=== PATIENT | female | born 1985 | race African-American/Black ===

== ENCOUNTER 2021-12-03 17:25 | Inpatient (IN) | payer MEDICAID, OTHER ==
[~2021-12-03] VITALS: Ht 157.5 cm; Wt 134.5 kg
[2021-12-03] MEDS ORDERED: ALBUTEROL SULF 2.5 MG/0.5ML(0.5%) NEB SOLN HHN ONE (19:15)
[2021-12-03] MEDS ORDERED: IPRATROPIUM BROM 0.5 MG/2.5ML INH SOL HHN ONE (19:15)
[2021-12-03] MEDS ORDERED: FAMOTIDINE 20 MG TAB PO ONE (21:45)
[2021-12-04] MEDS ORDERED: IOHEXOL 350 MG/ML 100ML IJ ONE (00:08)
[2021-12-04 00:26] LABS: Basophils # (auto) 0 10 ^3/uL (0-0.2); Eosinophils # (auto) 0 10 ^3/uL (0-0.8); Hemoglobin 13.7 g/dL (12.2-16.2)
[2021-12-04 00:28] LABS: Basophils % (auto) 0.2 % (0.0-2.0); Hematocrit 41.2 % (36.0-46.0); Lymphocytes # (auto) 1.3 10 ^3/uL (0.4-5.4); Lymphocytes % (auto) 9.1 % (10.0-50.0); Mean Corpuscular Hemoglobin 25.7 pg (28.0-32.0); Mean Corpuscular Hgb Conc. 33.2 g/dL (32.0-36.0); Mean Corpuscular Volume 77.3 fL (80.0-100.0); Monocytes # (auto) 0.7 10 ^3/uL (0-1.3); Neutrophils # (auto) 11.8 10 ^3/uL (1.6-8.6); Neutrophils % (auto) 85.7 % (37.0-80.0); Red Blood Cells 5.33 10^6/uL (4.0-5.20); Red Cell Distribution Width 16.2 % (11.8-14.3); White Blood Cell 13.8 10^3/uL (4.4-10.8)
[2021-12-04 00:37] LABS: BUN/Creatinine Ratio 8.6; Calcium 8.5 mg/dL (8.5-10.1); Potassium 3.7 mmol/L (3.5-5.1)
[2021-12-04] MEDS ORDERED: AZITHROMYCIN 500MG/ 250ML 250 ML IV ONE (04:30)
[2021-12-04] MEDS ORDERED: cefTRIAXone 1GM/50ML D5W 50 ML IV ONE (04:30)
[2021-12-04 10:27] LABS: Basophils # (auto) 0 10 ^3/uL (0-0.2); Eosinophils # (auto) 0 10 ^3/uL (0-0.8); Hemoglobin 12.2 g/dL (12.2-16.2); Lymphocytes # (auto) 0.7 10 ^3/uL (0.4-5.4); Mean Corpuscular Hemoglobin 24.7 pg (28.0-32.0); Monocytes # (auto) 0.6 10 ^3/uL (0-1.3); Nucleated Red Blood Cells % 0.1 %; Red Cell Distribution Width 16.3 % (11.8-14.3)
[2021-12-04 10:29] LABS: Hematocrit 37.9 % (36.0-46.0); Lymphocytes % (auto) 5.7 % (10.0-50.0); Mean Corpuscular Hgb Conc. 32.2 g/dL (32.0-36.0); Mean Corpuscular Volume 76.8 fL (80.0-100.0); Monocytes % (auto) 5.1 % (0.0-12.0); Neutrophils % (auto) 89.2 % (37.0-80.0); Red Blood Cells 4.94 10^6/uL (4.0-5.20); White Blood Cell 12.3 10^3/uL (4.4-10.8)
[2021-12-04 10:53] LABS: BUN/Creatinine Ratio 14.7; Calcium 8.6 mg/dL (8.5-10.1)
[2021-12-04] MEDS ORDERED: methylPREDNISolone SOD SUCC 125 MG/2 ML VL IV ONE (11:15)
[2021-12-04] MEDS ORDERED: IPRATROPIUM BROM 0.5 MG/2.5ML INH SOL NEB PRN (11:15)
[2021-12-04] MEDS ORDERED: SODIUM CHLORIDE 0.9% 500 ML IV ONE (11:15)
[2021-12-04] MEDS ORDERED: MORPHINE SULFATE INJ 2 MG/ml SYRG IV PRN (11:15)
[2021-12-04] MEDS ORDERED: ALBUTEROL SULF 2.5 MG/0.5ML(0.5%) NEB SOLN NEB PRN (11:15)
[2021-12-04] MEDS: SODIUM CHLORIDE 0.9% 1,000 ML IV SCH (11:15)
[2021-12-04] MEDS: IPRATROPIUM BROM 0.5 MG/2.5ML INH SOL NEB SCH ×2 (12:02→18:41)
[2021-12-04] MEDS: ALBUTEROL SULF 2.5 MG/0.5ML(0.5%) NEB SOLN NEB SCH ×2 (12:02→18:41)
[2021-12-04 13:37] LABS: Urine Bacteria NONE SEEN /hpf (None Seen); Urine Blood 3+ /uL (Negative); Urine Specific Gravity 1.037 (1.001-1.035); Urine WBC 24 /hpf (0 - 5)
[2021-12-04 13:45] VITALS: BP 124/86
[2021-12-04 13:50] LABS: Amphetamine Screen, Urine NEGATIVE (NEGATIVE); Barbiturate Scree,Urine NEGATIVE (NEGATIVE); Benzodiazephine Screen, Urine NEGATIVE (NEGATIVE); Cannabinoid Screen, Urine POSITIVE (NEGATIVE); Cocaine Screen, Urine NEGATIVE (NEGATIVE); Opiate Scree,Urine NEGATIVE (NEGATIVE); Phencyclidine Screen, Urine NEGATIVE (NEGATIVE)
[2021-12-04] MEDS ORDERED: ALBU0.084 NEB (19:04)
[2021-12-04] MEDS ORDERED: HYDROcodone-ACET 5/325MG TAB PO ONE (22:00)
[2021-12-05] MEDS: SODIUM CHLORIDE 0.9% 1,000 ML IV SCH ×3 (03:04→17:15)
[2021-12-05 05:00] VITALS: BP 101/71
[2021-12-05] MEDS: ALBUTEROL SULF 2.5 MG/0.5ML(0.5%) NEB SOLN NEB SCH ×3 (05:50→19:27)
[2021-12-05] MEDS: IPRATROPIUM BROM 0.5 MG/2.5ML INH SOL NEB SCH ×3 (05:50→19:27)
[2021-12-05] MEDS: methylPREDNISolone SOD SUCC 40 MG/ML VL IV SCH ×3 (06:25→21:42)
[2021-12-05 07:01] LABS: Eosinophils # (auto) 0 10 ^3/uL (0-0.8); Hemoglobin 11.7 g/dL (12.2-16.2); Monocytes # (auto) 0.8 10 ^3/uL (0-1.3); Nucleated Red Blood Cells % 0.1 %
[2021-12-05 07:03] LABS: Basophils # (auto) 0.1 10 ^3/uL (0-0.2); Basophils % (auto) 0.4 % (0.0-2.0); Hematocrit 35.3 % (36.0-46.0); Lymphocytes # (auto) 1.1 10 ^3/uL (0.4-5.4); Lymphocytes % (auto) 7.2 % (10.0-50.0); Mean Corpuscular Hemoglobin 25.3 pg (28.0-32.0); Mean Corpuscular Hgb Conc. 33.1 g/dL (32.0-36.0); Mean Corpuscular Volume 76.4 fL (80.0-100.0); Monocytes % (auto) 4.9 % (0.0-12.0); Neutrophils # (auto) 13.9 10 ^3/uL (1.6-8.6); Neutrophils % (auto) 87.5 % (37.0-80.0); Red Blood Cells 4.62 10^6/uL (4.0-5.20); Red Cell Distribution Width 16.3 % (11.8-14.3); White Blood Cell 15.9 10^3/uL (4.4-10.8)
[2021-12-05 07:06] LABS: Calcium 8.3 mg/dL (8.5-10.1); Potassium 4.1 mmol/L (3.5-5.1)
[2021-12-05 07:12] LABS: BUN/Creatinine Ratio 21.9
[2021-12-05] MEDS: cefTRIAXone 1GM/50ML D5W 50 ML IV SCH (09:21)
[2021-12-05] MEDS: ENOXAPARIN SOD 40 MG/0.4 ML SYRINGE SC SCH (10:28)
[2021-12-05] MEDS: AZITHROMYCIN 500MG/ 250ML 250 ML IV SCH (10:28)
[2021-12-05] MEDS: ACETAMINOPHEN 325 MG TAB PO PRN ×2 (13:05→21:03)
[2021-12-05 14:31] VITALS: BP 122/86
[2021-12-05 22:00] VITALS: BP 119/65
[2021-12-06 05:00] VITALS: BP 120/62
[2021-12-06] MEDS: methylPREDNISolone SOD SUCC 40 MG/ML VL IV SCH ×3 (05:50→22:12)
[2021-12-06] MEDS: SODIUM CHLORIDE 0.9% 1,000 ML IV SCH ×3 (05:50→23:15)
[2021-12-06] MEDS: IPRATROPIUM BROM 0.5 MG/2.5ML INH SOL NEB SCH ×3 (06:44→18:46)
[2021-12-06] MEDS: ALBUTEROL SULF 2.5 MG/0.5ML(0.5%) NEB SOLN NEB SCH ×3 (06:44→18:46)
[2021-12-06 09:00] VITALS: BP 115/66
[2021-12-06] MEDS: cefTRIAXone 1GM/50ML D5W 50 ML IV SCH (09:02)
[2021-12-06] MEDS: ENOXAPARIN SOD 40 MG/0.4 ML SYRINGE SC SCH (09:02)
[2021-12-06] MEDS: AZITHROMYCIN 500MG/ 250ML 250 ML IV SCH (09:04)
[2021-12-06 12:48] VITALS: BP 126/67
[2021-12-06 16:51] VITALS: BP 145/90
[2021-12-06] MEDS: ACETAMINOPHEN 325 MG TAB PO PRN (20:42)
[2021-12-06 22:00] VITALS: BP 108/68
[2021-12-07] MEDS: SODIUM CHLORIDE 0.9% 1,000 ML IV SCH (00:15)
[2021-12-07 04:46] VITALS: BP 143/82
[2021-12-07] MEDS: IPRATROPIUM BROM 0.5 MG/2.5ML INH SOL NEB SCH ×2 (07:11→11:26)
[2021-12-07] MEDS: ALBUTEROL SULF 2.5 MG/0.5ML(0.5%) NEB SOLN NEB SCH ×2 (07:11→11:26)
[2021-12-07 09:00] VITALS: BP 143/89
[2021-12-07] MEDS: AZITHROMYCIN 500MG/ 250ML 250 ML IV SCH (09:10)
[2021-12-07] MEDS: ENOXAPARIN SOD 40 MG/0.4 ML SYRINGE SC SCH (09:10)
[2021-12-07] MEDS: cefTRIAXone 1GM/50ML D5W 50 ML IV SCH (09:10)
[2021-12-07 10:55] VITALS: BP 143/89
[2021-12-07] MEDS ORDERED: AZIT250T8 PO (12:29)
[2021-12-07] MEDS ORDERED: PRED20TA2 PO (12:33)
[2021-12-07 13:00] VITALS: BP 119/62
[2021-12-07 16:31] VITALS: BP 152/97
[2021-12-08] MEDS ORDERED: predniSONE 20 MG TAB PO SCH (10:00)
== END 2021-12-07 17:30 | disposition home or self-care (01) | DRG 133 ==
LOC: EDBD 17:25 → ER 17:25 → TELE 12-04 11:07 → TELE-WESTW 12-05 09:39
PROVIDERS: ADMIT Registered Nurse; ATTEND Internal Medicine Nephrology
DX: J96.01 Acute respiratory failure with hypoxia (principal); N17.9 Acute kidney failure, unspecified; J18.9 Pneumonia, unspecified organism; J45.901 Unspecified asthma with (acute) exacerbation; Z68.43 Body mass index [BMI] 50.0-59.9, adult; N39.0 Urinary tract infection, site not specified; F12.10 Cannabis abuse, uncomplicated; Z20.822 Contact with and (suspected) exposure to COVID-19; E66.01 Morbid (severe) obesity due to excess calories; Z87.09 Personal history of other diseases of the respiratory system; Z86.16 Personal history of COVID-19
CPT/HCPCS: 36415; 71045; 71046; 71275; 80048; 80307; 81001; 83605; 83735; 84484; 85025; 85379; 87040; 87070; 87086; 87205; 93005; 93970; 94640; 94644; 96365; 96367; G0378; J0696

== ENCOUNTER 2024-09-16 11:33 | Inpatient (IN) | payer MEDICAID ==
[~2024-09-16] VITALS: Ht 160 cm; Wt 128.0 kg
[~2024-09-16 11:33] MED LIST: ALBU0.084 NEB; AZIT-185 PO; PRED20TA2 PO
--- NOTE | 2024-09-16 12:13 | ED.PDOC ---
History of Present Illness HPI Comments 39F presents to the Er w/ prior Hx of Pneumonia, COVID x2 and Asthma which all may be associated to the c/c of SOB. Pt reports on being "sick 2 weeks ago" and as it went away, the symptoms came back of lightheadedness, N/ and Cough on Saturday of 09/12/24. Social Hx of Occasional alcohol use, and marijuana use but denies tobacco use. Denies chills, fever, N/V/D, CP or no other associated symptom's, modifiers, recent injuries or sick contacts at this time. Chief Complaint: Shortness of Breath Time Seen by MD: 12:00 Primary Care Provider: MASOUD Reviewed Notes: Nurses Notes, Medications, Allergies Allergies: Coded Allergies: NO KNOWN ALLERGIES (Unverified , 02/29/16) Home Meds Active Scripts Prednisone (Prednisone) 20 Mg Tab, 2 TAB PO DAILY for 5 Days, #10 TAB Prov:GROVER PATEL MD 12/07/21 Azithromycin (ZITHROMAX TABLET) 250 Mg Tb, 250 MG PO DAILY for 4 Days, #4 TAB Prov:GROVER PATEL MD 12/07/21 Reported Medications Albuterol Sulfate (Albuterol Sulfate) 0.083 % Neb, 1 VIAL NEB Q4HPRN, #50 VIAL 12/04/21 Information Source: Patient Mode of Arrival: Ambulatory Severity: Moderate Timing: Days Duration: Since onset, Days Prehospital treatment: None Past Medical History PAST MEDICAL HISTORY: Asthma Past Medical History (Other): Pneumonia and COVIDx2 Surgical History: Denies all surgeries PHYSICS PROFESSOR History: No Pertinent PHYSICS PROFESSOR History Family History Family History: Reviewed,noncontributory to illness, Unknown Social History Smoker: Non-Smoker Alcohol: Denies ETOH Use Drugs: Denies Drug Use Lives In: Home Constitutional: denies: chills, diaphoresis, fatigue, fever, malaise, sweats, weakness, others EENTM: denies: blurred vision, double vision, ear bleeding, ear discharge, ear drainage, ear pain, ear ringing, eye pain, eye redness, hearing loss, mouth pain, mouth swelling, nasal discharge, nose bleeding, nose congestion, nose pain, photophobia, tearing, throat pain, throat swelling, voice changes, others Respiratory: reports: cough, shortness of breath; denies: hemoptysis, orthopnea, SOB at rest, SOB with excertion, stridor, wheezing, others Cardiovascular: denies: chest pain, dizzy spells, diaphoresis, Dyspnea on exertion, edema, irregular heart beat, left arm pain, lightheadedness, palpitations, PND, syncope, others Gastrointestinal: denies: abdomen distended, abdominal pain, blood streaked bowels, constipated, diarrhea, dysphagia, difficulty swallowing, hematemesis, melena, nausea, poor appetite, poor fluid intake, rectal bleeding, rectal pain, vomiting, others Genitourinary: denies: abnormal vagina bleeding, burning, dyspareunia, dysuria, flank pain, frequency, hematuria, incontinence, pain, , vagina discharge, urgency, others Neurological: denies: dizziness, fainting, headache, left sided numbness, left sided weakness, numbness, paresthesia, pre-existing deficit, right sided numbness, right sided weakness, seizure, speech problems, tingling, tremors, weakness, others Musculoskeletal: denies: back pain, gout, joint pain, joint swelling, muscle pain, muscle stiffness, neck pain, others Integumetry: denies: bruises, change in color, change in hair/nails, dryness, laceration, lesions, lumps, rash, wounds, others Allergic/Immunocompromised: denies: Difficulty Healing, Frequent Infections, Hives, Itching, others Hematologic/Lymphatic: denies: anemia, blood clots, easy bleeding, easy bruising, swollen glands, others Endocrine: denies: excessive hunger, excessive sweating, excessive thirst, excessive urination, flushing, intolerance to cold, intolerance to heat, unexplained weight gain, unexplained weight loss, others Psychiatric: denies: anxiety, bipolar disorder, depression, hopeless, panic disorder, schizophrenia, sleepless, suicidal, others All Other Systems: Reviewed and Negative Physical Exam General Appearance: Moderate Distress, Normal HEENT: Normal ENT Inspection, Pharynx Normal, TMs Normal Neck: Full Range of Motion, Non-Tender, Normal, Normal Inspection Respiratory: Chest Non-Tender, No Accessory Muscle Use, Wheezing Cardiovascular: No Edema, No JVD, No Murmur, No Gallop, Normal Peripheral Pulses, Regular Rate/Rhythm Breast Exam: Deferred Gastrointestinal: No Organomegaly, Non Tender, No Pulsatile Mass, Normal Bowel Sounds, Soft Genitalia: Deferred Pelvic: Deferred Rectal: Deferred Extremities: No calf tenderness, Normal capillary refill, Normal inspection, Normal range of motion, Non-tender, No pedal edema Musculoskeletal : Apperance: Normal Neurologic: Alert, 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 Was a procedure done?: No Differential Dx Considerations may include: Pneumonitis Electrolyte imbalance X-Ray, Labs, Meds, VS Vital Signs Date Time Temp Pulse Resp B/P (MAP) Pulse Ox O2 Delivery O2 Flow Rate FiO2 09/16/24 12:36 98.2 89 20 133/90 (104) 97 98.2 09/16/24 12:36 89 20 97 Room Air* 0 21 09/16/24 11:58 63 09/16/24 11:57 18 95 Room Air* 0 21 09/16/24 11:49 98.3 101 18 145/100 (115) 95 98.3 Lab Test 09/16/24 13:11 Range/Units White Blood Count 7.2 4.4-10.8 10^3/uL Red Blood Count 5.96 H 4.0-5.20 10^6/uL Hemoglobin 14.2 12.2-16.2 g/dL Hematocrit 45.2 36.0-46.0 % Mean Corpuscular Volume 75.9 L 80.0-100.0 fL Mean Corpuscular Hemoglobin 23.8 L 28.0-32.0 pg Mean Corpuscular Hemoglobin Concent 31.4 L 32.0-36.0 g/dL Red Cell Distribution Width 17.5 H 11.8-14.3 % Platelet Count 280 140-450 10^3/uL Mean Platelet Volume 8.4 6.9-10.8 fL Neutrophils (%) (Auto) 61.7 37.0-80.0 % Lymphocytes (%) (Auto) 22.3 10.0-50.0 % Monocytes (%) (Auto) 9.6 0.0-12.0 % Eosinophils (%) (Auto) 6.1 0.0-7.0 % Basophils (%) (Auto) 0.3 0.0-2.0 % Neutrophils # (Auto) 4.4 1.6-8.6 10 ^3/uL Lymphocytes # (Auto) 1.6 0.4-5.4 10 ^3/uL Monocytes # (Auto) 0.7 0-1.3 10 ^3/uL Eosinophils # (Auto) 0.4 0-0.8 10 ^3/uL Basophils # (Auto) 0 0-0.2 10 ^3/uL Nucleated Red Blood Cells 0.1 % Sodium Level 140 136-145 mmol/L Potassium Level 4.1 3.5-5.1 mmol/L Chloride Level 107 98-107 mmol/L Carbon Dioxide Level 26 20-31 mmol/L Anion Gap 7 5-15 Blood Urea Nitrogen Pending Creatinine Pending Glomerular Filtration Rate Calc Pending BUN/Creatinine Ratio Pending Serum Glucose Pending Calcium Level 9.9 8.7-10.4 mg/dL Troponin I High Sensitivity Pending Patient alert. Complaining of cough. Shortness a breath upon walking. Blood pressure elevated. Was given clonidine. WBC within normal limits. Hemoglobin within normal limits. On examination possible pneumonitis. Was given steroid. Was given Rocephin. Was given azithromycin. Reviewed her history. Explained to the patient. Continue cardiac monitoring. Time of 1ST Reevaluation: 12:30 Reevaluation 1ST: Unchanged Patient Education/Counseling: Diagnosis, Treatment, Prognosis Family Education/Counseling: No Family Present Departure 1 Departure Time of Disposition: 13:47 Impression: Primary Impression: Pneumonitis Disposition: ADMITTED INPATIENT Admit to: Med Surg Condition: Guarded Critical Care Note Critical Care Time?: No Stability Stability form required: No Heart Score Heart Score: Heart Score Response (Comments) Value History N/A 0 EKG N/A 0 Age N/A 0 Risk Factors N/A 0 Troponin N/A 0 Total 0 I personally scribed for ADRIANA LINO MD ([email or web address]) on 09/16/24 at 12:13. Electronically submitted by Yousuf Becker ([email or web address]). ADRIANA LINO MD Sep 16, 2024 12:13
[2024-09-16 12:36] VITALS: PULSE 89; RESP 20; O2SAT 97
[2024-09-16 13:18] LABS: Basophils # (auto) 0 10 ^3/uL (0-0.2); Basophils % (auto) 0.3 % (0.0-2.0); Eosinophils # (auto) 0.4 10 ^3/uL (0-0.8); Eosinophils % (auto) 6.1 % (0.0-7.0); Hematocrit 45.2 % (36.0-46.0); Hemoglobin 14.2 g/dL (12.2-16.2); Lymphocytes # (auto) 1.6 10 ^3/uL (0.4-5.4); Lymphocytes % (auto) 22.3 % (10.0-50.0); Mean Corpuscular Hemoglobin 23.8 pg (28.0-32.0); Mean Corpuscular Hgb Conc. 31.4 g/dL (32.0-36.0); Mean Corpuscular Volume 75.9 fL (80.0-100.0); Monocytes # (auto) 0.7 10 ^3/uL (0-1.3); Monocytes % (auto) 9.6 % (0.0-12.0); Neutrophils # (auto) 4.4 10 ^3/uL (1.6-8.6); Neutrophils % (auto) 61.7 % (37.0-80.0); Nucleated Red Blood Cells % 0.1 %; Platelet Count (auto) 280 10^3/uL (140-450); Red Blood Cells 5.96 10^6/uL (4.0-5.20); Red Cell Distribution Width 17.5 % (11.8-14.3); White Blood Cell 7.2 10^3/uL (4.4-10.8)
[2024-09-16 13:43] LABS: Chloride 107 mmol/L (98-107); Potassium 4.1 mmol/L (3.5-5.1); Sodium 140 mmol/L (136-145)
[2024-09-16 13:44] LABS: Anion Gap 7 (5-15); Calcium 9.9 mg/dL (8.7-10.4); Carbon Dioxide 26 mmol/L (20-31)
[2024-09-16 13:49] LABS: BUN/Creatinine Ratio 7.6 (10.0-20.0); Glucose 86 mg/dL (74-106)
[2024-09-16 13:50] LABS: Blood Urea Nitrogen 6 mg/dL (9-23)
--- NOTE | 2024-09-16 13:52 | DVH ---
EXAM: XY CHEST PORTABLE Indication: sob Technique: Single frontal view of the chest was obtained Comparison: CHEST PORTABLE on DOS: 12/05/21, CXRP on DOS: 12/05/21 FINDINGS: Lines and Tubes: None Lungs: No focal consolidation. Pleura: No effusion. No pneumothorax. Cardiomediastinal contours: Unremarkable Bones: No acute osseous abnormality. IMPRESSION: No acute cardiopulmonary disease.
[2024-09-16] MEDS: ALBUTEROL SULF 2.5 MG/0.5ML(0.5%) NEB SOLN NEB ONE (14:10)
[2024-09-16] MEDS: IPRATROPIUM BROM 0.5 MG/2.5ML INH SOL NEB ONE (14:10)
[2024-09-16] MEDS: methylPREDNISolone SOD SUCC 125 MG/2 ML VL IV ONE (15:01)
[2024-09-16] MEDS: cefTRIAXone 1GM/50ML D5W 50 ML IV ONE (15:02)
[2024-09-16] MEDS: AZITHROMYCIN 500MG/ 250ML 250 ML IV ONE (15:02)
[2024-09-16] MEDS: ONDANSETRON HCL 4 MG/2 ML VIAL IV ONE (15:27)
[2024-09-16 15:35] LABS: Urine Bacteria FEW /hpf (None Seen); Urine Blood Negative /uL (Negative); Urine Clarity Turbid (Clear); Urine Color Yellow (Yellow); Urine Mucus FEW (None Seen); Urine Protein, UAD Negative (Negative); Urine Specific Gravity 1.022 (1.001-1.035); Urine Squamous Epithelial Cell MOD /hpf (<5); Urine Urobilinogen Normal (Negative); Urine WBC 11 /HPF (0-5)
[2024-09-16] MEDS ORDERED: ONDANSETRON HCL 4 MG/2 ML VIAL IV PRN (19:00)
[2024-09-16 19:54] VITALS: BP 114/77; PULSE 80; RESP 16; TEMP 97.9; O2SAT 94
[2024-09-16] MEDS: ACETAMINOPHEN 325 MG TAB PO PRN (20:18)
[2024-09-16 20:37] VITALS: BP 128/86; PULSE 92; RESP 18; TEMP 99; O2SAT 92
[2024-09-16 21:00] VITALS: BP 128/86; PULSE 92; RESP 18; TEMP 99; O2SAT 92
--- NOTE | 2024-09-16 22:30 | DVHHP2 ---
History of Present Illness Reason for Visit: Shortness of the breath History of Present Illness 39-year-old female presents for evaluation of shortness for breath. Patient reports a two day history of worsening shortness for breath not being relieved with her inhaler and nebulizer. She also reports having a cough with occasional chills. Denies chest pain or palpitations. No other acute complaints reported. Past Medical History Asthma Past Surgical History Denies Family History Noncontributory Smoke: No ALCOHOL: none Drugs: None Lives: with Family Review of Systems Review of Systems Review of systems are currently negative otherwise addressed in HPI. Allergies: Coded Allergies: NO KNOWN ALLERGIES (Unverified , 02/29/16) Medications Current Medications Medications Dose Ordered Sig/Sebastien Route Start Time Stop Time Status Last Admin Dose Admin Albuterol 2.5 mg Q6HPRN PRN NEB 09/16/24 19:00 Ipratropium [place] 0.5 mg Q6HPRN PRN NEB 09/16/24 19:00 Ceftriaxone Sodium 50 ml @ 100 mls/hr DAILY@09 IV 09/17/24 09:00 Ondansetron HCl 4 mg Q4HP PRN IV 09/16/24 19:00 Acetaminophen 650 mg Q6HP PRN PO 09/16/24 19:00 09/16/24 20:18 650 MG Exam Vital Signs Vital Signs Date Time Temp Pulse Resp B/P (MAP) Pulse Ox O2 Delivery O2 Flow Rate FiO2 09/16/24 21:00 99.0 92 18 128/86 (100) 92 99.0 09/16/24 20:37 Room Air* 0 21 Exam Gen: 39-year-old female in mild distress, morbidly obese Skin: Warm, dry, normal color and texture, no rash. HEENT: Normocephalic atraumatic, mucous membranes moist and pink. Neck: Cervical and supraclavicular nodes normal without enlargement, trachea is midline, thyroid gland is normal without masses. Pulmonary: Bilateral wheeze Cardiac: Regular rate and rhythm. No murmur Abdomen: Soft, nontender, nondistended, bowel sounds present all 4 quadrants, no guarding, no rigidity, no organomegaly. Extremities: No cyanosis, clubbing, no edema Neuro: Cranial nerves II through XII grossly intact, normal affect and speech, no focal motor deficits. Labs/Xrays ORDERING PHYSICIAN: ADRIANA LINO MD PROCEDURE(s): CXRP - CHEST PORTABLE REASON: sob ORDER NUMBER(s): [id number], ACCESSION NUMBER(s): [id number] EXAM: XY CHEST PORTABLE Indication: sob Technique: Single frontal view of the chest was obtained Comparison: CHEST PORTABLE on DOS: 12/05/21, CXRP on DOS: 12/05/21 FINDINGS: Lines and Tubes: None Lungs: No focal consolidation. Pleura: No effusion. No pneumothorax. Cardiomediastinal contours: Unremarkable Bones: No acute osseous abnormality. IMPRESSION: No acute cardiopulmonary disease. Labs Test 09/16/24 14:22 09/16/24 13:11 Range/Units Urine Color Yellow Yellow Urine Clarity Turbid H Clear Urine pH 5.0 5.0-9.0 Urine Specific [place] 1.022 1.001-1.035 Urine Protein Negative Negative Urine Ketones 2+ H Negative Urine Blood Negative Negative /uL Urine Nitrite Negative Negative Urine Bilirubin Negative Negative Urine Urobilinogen Normal Negative mg/dL Urine Leukocyte Esterase 2+ Negative /uL Urine RBC 1 0 - 4 /hpf Urine Microscopic WBC 11 H 0-5 /HPF Urine Squamous Epithelial Cells Mod <5 /hpf Urine Bacteria Few H None Seen /hpf Urine Mucus Few None Seen Urine Glucose Normal Normal mg/dL White Blood Count 7.2 4.4-10.8 10^3/uL Red Blood Count 5.96 H 4.0-5.20 10^6/uL Hemoglobin 14.2 12.2-16.2 g/dL Hematocrit 45.2 36.0-46.0 % Mean Corpuscular Volume 75.9 L 80.0-100.0 fL Mean Corpuscular Hemoglobin 23.8 L 28.0-32.0 pg Mean Corpuscular Hemoglobin Concent 31.4 L 32.0-36.0 g/dL Red Cell Distribution Width 17.5 H 11.8-14.3 % Platelet Count 280 140-450 10^3/uL Mean Platelet Volume 8.4 6.9-10.8 fL Neutrophils (%) (Auto) 61.7 37.0-80.0 % Lymphocytes (%) (Auto) 22.3 10.0-50.0 % Monocytes (%) (Auto) 9.6 0.0-12.0 % Eosinophils (%) (Auto) 6.1 0.0-7.0 % Basophils (%) (Auto) 0.3 0.0-2.0 % Neutrophils # (Auto) 4.4 1.6-8.6 10 ^3/uL Lymphocytes # (Auto) 1.6 0.4-5.4 10 ^3/uL Monocytes # (Auto) 0.7 0-1.3 10 ^3/uL Eosinophils # (Auto) 0.4 0-0.8 10 ^3/uL Basophils # (Auto) 0 0-0.2 10 ^3/uL Nucleated Red Blood Cells 0.1 % Sodium Level 140 136-145 mmol/L Potassium Level 4.1 3.5-5.1 mmol/L Chloride Level 107 98-107 mmol/L Carbon Dioxide Level 26 20-31 mmol/L Anion Gap 7 5-15 Blood Urea Nitrogen 6 L 9-23 mg/dL Creatinine 0.79 0.550-1.02 mg/dL Glomerular Filtration Rate Calc 98 >90 mL/min BUN/Creatinine Ratio 7.6 L 10.0-20.0 Serum Glucose 86 74-106 mg/dL Calcium Level 9.9 8.7-10.4 mg/dL Troponin I High Sensitivity 3 L </=34 ng/L Assessment/Plan Assessment/Plan Assessment Acute pneumonitis Asthma exacerbation Urinary tract infection Plan Admit the patient to Med surge to the hospitalist Soheila Atkins nebs Resume home medications Continue treatment per orders. Plan discussed with: Patient My Orders Orders - ANN MARIE PATEL AGACNP Procedure Category Date Status Time Albuterol Medneb PHA 09/16/24 In Process (Ventolin Medneb) 19:00 Ipratropium Medneb PHA 09/16/24 In Process (Atrovent Medneb) 19:00 Ceftriaxone 1gm/50ml PHA 09/17/24 In Process D5w (Rocephin) 09:00 Basic Metabolic Panel LAB 09/17/24 Verified 04:00 Admit ADMIT 09/16/24 Transmitted 18:46 Ondansetron Hcl PHA 09/16/24 In Process (Zofran) 19:00 Complete Blood Count LAB 09/17/24 Verified 04:00 Condition: Stable KEVIN 3/19/25 In Process 18:46 Acetaminophen Tablet PHA 09/16/24 In Process (Tylenol Tablet) 19:00 Bedrest With Bathroom KEVIN 09/16/24 In Process Privileg 18:46 Date of Service: Sep 16, 2024 Billing Provider: ANN MARIE PATEL Common Visit Codes: [id number] INP/OBS CARE (HIGH) ANN MARIE PATEL Sep 16, 2024 22:30
[2024-09-17] VITALS (13 sets, daily range): BP systolic 116–141; BP diastolic 63–85; PULSE 65–90; RESP 0–20; TEMP 97.6–98.7; O2SAT 96–100
[2024-09-17] MEDS: ALBUTEROL SULF 2.5 MG/0.5ML(0.5%) NEB SOLN NEB PRN (00:14)
[2024-09-17] MEDS: IPRATROPIUM BROM 0.5 MG/2.5ML INH SOL NEB PRN (00:14)
--- NOTE | 2024-09-17 06:55 | ECG ---
[facility] Test Date: 2024-09-16 Test Time: 11:58:45 Pat Name: LB GONZALEZ Department: ER Room: 0286 Gender: F Meat Wrapper: KANU : 1985 Requested By: ADRIANA LINO Order Number: [id number] Reading MD: Sung Jackson Measurements Intervals [place] Rate: 63 P: 144 WV: 124 QRS: 57 QRSD: 67 T: -32 QT: 513 QTc: 526 Interpretive Statements Sinus or ectopic atrial rhythm Low voltage, precordial leads Borderline T abnormalities, diffuse leads Prolonged QT interval Electronically Signed On 09-19-2024 17:21:56 PDT by Sung Jackson Please click the below link to view image of tracing.
[2024-09-17 07:12] LABS: Chloride 106 mmol/L (98-107); Potassium 4.4 mmol/L (3.5-5.1); Sodium 139 mmol/L (136-145)
[2024-09-17 07:13] LABS: Anion Gap 8 (5-15); Carbon Dioxide 25 mmol/L (20-31)
[2024-09-17 07:14] LABS: Calcium 9.8 mg/dL (8.7-10.4)
[2024-09-17 07:16] LABS: Basophils # (auto) 0 10 ^3/uL (0-0.2); Basophils % (auto) 0.1 % (0.0-2.0); Eosinophils # (auto) 0 10 ^3/uL (0-0.8); Hematocrit 41.8 % (36.0-46.0); Hemoglobin 13.8 g/dL (12.2-16.2); Mean Corpuscular Hemoglobin 24.6 pg (28.0-32.0); Mean Corpuscular Hgb Conc. 33.1 g/dL (32.0-36.0); Mean Corpuscular Volume 74.3 fL (80.0-100.0); Monocytes # (auto) 0.4 10 ^3/uL (0-1.3); Neutrophils # (auto) 8.5 10 ^3/uL (1.6-8.6); Neutrophils % (auto) 85.9 % (37.0-80.0); Platelet Count (auto) 317 10^3/uL (140-450); Red Blood Cells 5.63 10^6/uL (4.0-5.20); Red Cell Distribution Width 17.2 % (11.8-14.3); White Blood Cell 9.9 10^3/uL (4.4-10.8)
[2024-09-17 07:18] LABS: BUN/Creatinine Ratio 9.9 (10.0-20.0)
[2024-09-17 07:22] LABS: Blood Urea Nitrogen 8 mg/dL (9-23); Glucose 111 mg/dL (74-106)
[2024-09-17] MEDS: cefTRIAXone 1GM/50ML D5W 50 ML IV SCH (09:08)
--- NOTE | 2024-09-17 12:44 | DVHPN2 ---
Subjective The patient is seen and examined at bedside. Still have a lot of cough and wheezing. Reviewed: Care Plan, H&P, Labs, Medications, Previous Orders, Radiology Changes from previous H/P or p: No Changes Objective Vitals Vital Signs Date Time Temp Pulse Resp B/P (MAP) Pulse Ox O2 Delivery O2 Flow Rate FiO2 09/17/24 12:33 97.7 72 18 127/75 (92) 98 97.7 09/17/24 10:15 Nasal Cannula 2.0 09/17/24 10:15 28 Intake/Output Intake and Output 09/17/24 07:00 Intake Total 720 ml Output Total 50 ml Balance 670 ml Intake Oral 370 ml IV Total 350 ml Output Urine Total 50 ml # Voids 2 General Appearance: Alert, Oriented X3, Cooperative, No acute distress HEENT: Atraumatic, PERRLA, EOMI Neck: Supple Lungs: Clear to auscultation, Normal air movement Cardiovascular: Regular rate, Normal S1, Normal S2, No murmurs, Gallops, Rubs Abdomen: Normal bowel sounds, Soft, No tenderness Neuro: Cranial nerves 3-12 NL Psych/Mental Status: Mental status NL Medications Current Medications Medications Dose Ordered Sig/Sebastien Route Start Time Stop Time Status Last Admin Dose Admin Albuterol 2.5 mg Q6HPRN PRN NEB 09/16/24 19:00 09/17/24 10:15 2.5 MG Ipratropium [place] 0.5 mg Q6HPRN PRN NEB 09/16/24 19:00 09/17/24 10:15 0.5 MG Ceftriaxone Sodium 50 ml @ 100 mls/hr DAILY@09 IV 09/17/24 09:00 09/17/24 09:08 100 MLS/HR Ondansetron HCl 4 mg Q4HP PRN IV 09/16/24 19:00 Acetaminophen 650 mg Q6HP PRN PO 09/16/24 19:00 09/17/24 10:43 650 MG Laboratory Results Laboratory Tests 09/17/24 06:48 Chemistry Test 09/16/24 13:11 09/17/24 06:48 Calcium Level 9.9 mg/dL (8.7-10.4) 9.8 mg/dL (8.7-10.4) Urinalysis Test 09/16/24 14:22 Urine Color Yellow (Yellow) Urine Clarity Turbid (Clear) H Urine pH 5.0 (5.0-9.0) Urine Specific [place] 1.022 (1.001-1.035) Urine Protein Negative (Negative) Urine Ketones 2+ (Negative) H Urine Blood Negative /uL (Negative) Urine Nitrite Negative (Negative) Urine Bilirubin Negative (Negative) Urine Urobilinogen Normal mg/dL (Negative) Urine Leukocyte Esterase 2+ /uL (Negative) Urine RBC 1 /hpf (0 - 4) Urine Microscopic WBC 11 /HPF (0-5) H Urine Squamous Epithelial Cells Mod /hpf (<5) Urine Bacteria Few /hpf (None Seen) H Urine Mucus Few (None Seen) Urine Glucose Normal mg/dL (Normal) Labs and/or images reviewed: Labs reviewed by me Assessment/Plan Assessment/Plan pneumonia possible secondary to Gram-positive pneumonia Asthma exacerbation Urinary tract infection Plan: Continuing current management. Continuing with IV antibiotic Zithromax. I will add Rocephin in her regimen. Continuing with nebulizer. Continuing with Solu-Medrol. This medical document was created using an electronic medical record system with [employer] direct computerized dictation system. Although this document has been carefully reviewed, there may still be some phonetic and typographical errors. These areas are purely typographical due to imperfections of the software programs, and do not reflect any compromise in the patient's medical care. Plan discussed with: Patient Date of Service: Sep 17, 2024 Billing Provider: RENETTA HENNING MD Common Visit Codes: [id number] INP/OBS CARE(HIGH) RENETTA HENNING MD Sep 17, 2024 12:44
[2024-09-18] VITALS (11 sets, daily range): BP systolic 102–135; BP diastolic 59–82; PULSE 65–74; RESP 0–19; TEMP 97.2–98.6; O2SAT 94–98
--- NOTE | 2024-09-18 11:31 | DVHPN2 ---
Subjective The patient is seen and examined at bedside. The patient said she feels little bit better but still complain of shortness for breath. Reviewed: Care Plan, H&P, Labs, Medications, Previous Orders, Radiology Changes from previous H/P or p: No Changes Objective Vitals Vital Signs Date Time Temp Pulse Resp B/P (MAP) Pulse Ox O2 Delivery O2 Flow Rate FiO2 09/18/24 09:00 97.9 74 16 102/76 (85) 96 97.9 09/18/24 07:02 Room Air 0.0 09/18/24 07:02 21 Intake/Output Intake and Output 09/18/24 07:00 Intake Total 1050 ml Balance 1050 ml Intake Oral 1000 ml IV Total 50 ml # Voids 2 # Bowel Movements 1 General Appearance: Alert, Oriented X3, Cooperative HEENT: Atraumatic, PERRLA, EOMI, Mucous membr. moist/pink Neck: Supple Lungs: Clear to auscultation, Normal air movement Cardiovascular: Regular rate, Normal S1, Normal S2, No murmurs, Gallops, Rubs Abdomen: Normal bowel sounds, Soft, No tenderness, No hepatospenomegaly Neuro: Cranial nerves 3-12 NL Psych/Mental Status: Mental status NL Medications Current Medications Medications Dose Ordered Sig/Sebastien Route Start Time Stop Time Status Last Admin Dose Admin Albuterol 2.5 mg Q6HPRN PRN NEB 09/16/24 19:00 09/17/24 10:15 2.5 MG Ipratropium [place] 0.5 mg Q6HPRN PRN NEB 09/16/24 19:00 09/17/24 10:15 0.5 MG Ceftriaxone Sodium 50 ml @ 100 mls/hr DAILY@09 IV 09/17/24 09:00 09/18/24 09:13 100 MLS/HR Ondansetron HCl 4 mg Q4HP PRN IV 09/16/24 19:00 Acetaminophen 650 mg Q6HP PRN PO 09/16/24 19:00 09/18/24 01:07 650 MG Laboratory Results Laboratory Tests 09/17/24 06:48 Urinalysis Test 09/16/24 14:22 Urine Color Yellow (Yellow) Urine Clarity Turbid (Clear) H Urine pH 5.0 (5.0-9.0) Urine Specific [place] 1.022 (1.001-1.035) Urine Protein Negative (Negative) Urine Ketones 2+ (Negative) H Urine Blood Negative /uL (Negative) Urine Nitrite Negative (Negative) Urine Bilirubin Negative (Negative) Urine Urobilinogen Normal mg/dL (Negative) Urine Leukocyte Esterase 2+ /uL (Negative) Urine RBC 1 /hpf (0 - 4) Urine Microscopic WBC 11 /HPF (0-5) H Urine Squamous Epithelial Cells Mod /hpf (<5) Urine Bacteria Few /hpf (None Seen) H Urine Mucus Few (None Seen) Urine Glucose Normal mg/dL (Normal) Labs and/or images reviewed: Labs reviewed by me Assessment/Plan Assessment/Plan pneumonia possible secondary to Gram-positive pneumonia Asthma exacerbation Urinary tract infection Cough Plan: Continuing current management. Continuing with IV antibiotic Zithromax and Rocephin Continuing with nebulizer. Continuing with Solu-Medrol. We will add Robitussin DM 10 mL every 4 hours as needed for cough. This medical document was created using an electronic medical record system with [employer] direct computerized dictation system. Although this document has been carefully reviewed, there may still be some phonetic and typographical errors. These areas are purely typographical due to imperfections of the software programs, and do not reflect any compromise in the patient's medical care. Plan discussed with: Patient Date of Service: Sep 18, 2024 Billing Provider: RENETTA HENNING MD Common Visit Codes: [id number] INP/OBS CARE(HIGH) RENETTA HENNING MD Sep 18, 2024 11:31
[2024-09-18] MEDS: guaiFENesin-DM 100/10mg/5ml SYR PO PRN (17:17)
[2024-09-19 05:00] VITALS: BP 111/83; PULSE 81; RESP 19; TEMP 97.5; O2SAT 99
[2024-09-19] MEDS: methylPREDNISolone SOD SUCC 40 MG/ML VL IV SCH (05:17)
[2024-09-19 06:36] VITALS: O2SAT 99
[2024-09-19 07:39] LABS: Basophils # (auto) 0 10 ^3/uL (0-0.2); Basophils % (auto) 0.4 % (0.0-2.0)
[2024-09-19 07:41] LABS: Eosinophils # (auto) 0.5 10 ^3/uL (0-0.8); Eosinophils % (auto) 6.9 % (0.0-7.0); Hematocrit 37.2 % (36.0-46.0); Hemoglobin 12.2 g/dL (12.2-16.2); Lymphocytes % (auto) 31.1 % (10.0-50.0); Mean Corpuscular Hemoglobin 24.6 pg (28.0-32.0); Mean Corpuscular Hgb Conc. 32.8 g/dL (32.0-36.0); Monocytes # (auto) 0.3 10 ^3/uL (0-1.3); Monocytes % (auto) 3.8 % (0.0-12.0); Neutrophils # (auto) 3.8 10 ^3/uL (1.6-8.6); Neutrophils % (auto) 57.8 % (37.0-80.0); Nucleated Red Blood Cells % 0.1 %; Platelet Count (auto) 296 10^3/uL (140-450); Red Blood Cells 4.96 10^6/uL (4.0-5.20); Red Cell Distribution Width 17.5 % (11.8-14.3); White Blood Cell 6.6 10^3/uL (4.4-10.8)
[2024-09-19 07:47] LABS: Chloride 106 mmol/L (98-107); Potassium 4.1 mmol/L (3.5-5.1); Sodium 140 mmol/L (136-145)
[2024-09-19 07:48] LABS: Anion Gap 10 (5-15); Carbon Dioxide 24 mmol/L (20-31)
[2024-09-19 07:49] LABS: Calcium 9.3 mg/dL (8.7-10.4)
[2024-09-19 07:53] LABS: BUN/Creatinine Ratio 12.5 (10.0-20.0)
[2024-09-19 08:00] VITALS: RESP 0
[2024-09-19 08:01] LABS: Blood Urea Nitrogen 9 mg/dL (9-23); Glucose 117 mg/dL (74-106)
[2024-09-19 09:00] VITALS: BP 110/64; PULSE 82; RESP 20; TEMP 98.2; O2SAT 98
[2024-09-19] MEDS: AZITHROMYCIN 500MG/ 250ML 250 ML IV SCH (09:32)
[2024-09-19 13:00] VITALS: BP 138/89; PULSE 88; RESP 19; TEMP 98.3; O2SAT 97
--- NOTE | 2024-09-19 14:00 | DVHDS2 ---
Discharge Summary Date of Admission Sep 16, 2024 at 18:46 Date of Discharge: Sep 19, 2024 Admitting Diagnosis Acute pneumonitis Asthma exacerbation Urinary tract infection Cough Labs/Diagnostic Data: Laboratory Results Test 09/19/24 07:02 09/16/24 14:22 09/16/24 13:11 White Blood Count 6.6 10^3/uL (4.4-10.8) Red Blood Count 4.96 10^6/uL (4.0-5.20) Hemoglobin 12.2 g/dL (12.2-16.2) Hematocrit 37.2 % (36.0-46.0) Mean Corpuscular Volume 75.0 fL (80.0-100.0) Mean Corpuscular Hemoglobin 24.6 pg (28.0-32.0) Mean Corpuscular Hemoglobin Concent 32.8 g/dL (32.0-36.0) Red Cell Distribution Width 17.5 % (11.8-14.3) Platelet Count 296 10^3/uL (140-450) Mean Platelet Volume 8.4 fL (6.9-10.8) Neutrophils (%) (Auto) 57.8 % (37.0-80.0) Lymphocytes (%) (Auto) 31.1 % (10.0-50.0) Monocytes (%) (Auto) 3.8 % (0.0-12.0) Eosinophils (%) (Auto) 6.9 % (0.0-7.0) Basophils (%) (Auto) 0.4 % (0.0-2.0) Neutrophils # (Auto) 3.8 10 ^3/uL (1.6-8.6) Lymphocytes # (Auto) 2.0 10 ^3/uL (0.4-5.4) Monocytes # (Auto) 0.3 10 ^3/uL (0-1.3) Eosinophils # (Auto) 0.5 10 ^3/uL (0-0.8) Basophils # (Auto) 0 10 ^3/uL (0-0.2) Nucleated Red Blood Cells 0.1 % Sodium Level 140 mmol/L (136-145) Potassium Level 4.1 mmol/L (3.5-5.1) Chloride Level 106 mmol/L (98-107) Carbon Dioxide Level 24 mmol/L (20-31) Anion Gap 10 (5-15) Blood Urea Nitrogen 9 mg/dL (9-23) Creatinine 0.72 mg/dL (0.550-1.02) Glomerular Filtration Rate Calc 110 mL/min (>90) BUN/Creatinine Ratio 12.5 (10.0-20.0) Serum Glucose 117 mg/dL (74-106) Calcium Level 9.3 mg/dL (8.7-10.4) Urine Color Yellow (Yellow) Urine Clarity Turbid (Clear) Urine pH 5.0 (5.0-9.0) Urine Specific [place] 1.022 (1.001-1.035) Urine Protein Negative (Negative) Urine Ketones 2+ (Negative) Urine Blood Negative /uL (Negative) Urine Nitrite Negative (Negative) Urine Bilirubin Negative (Negative) Urine Urobilinogen Normal mg/dL (Negative) Urine Leukocyte Esterase 2+ /uL (Negative) Urine RBC 1 /hpf (0 - 4) Urine Microscopic WBC 11 /HPF (0-5) Urine Squamous Epithelial Cells Mod /hpf (<5) Urine Bacteria Few /hpf (None Seen) Urine Mucus Few (None Seen) Urine Glucose Normal mg/dL (Normal) Troponin I High Sensitivity 3 ng/L (</=34) Other Laboratory Tests 09/19/24 07:02 Brief Hx & Hospital Course: This is a 39 years old female with past medical history of asthma came to emergency department because of two day shortness for breath which worsening despite using inhaler and nebulizer at home. Patient also had cough with yellowish sputum and subjective fever and chills. The patient was admitted. Chest x-ray showed acute pneumonitis. The patient was started on Rocephin 1 g IV q.day and Zithromax 500 mg IV q.day. The patient was started on Solu-Medrol 40 mg IV Q 8 hours. The patient was started nebulizer with Atrovent and albuterol. Subsequently the patient doing well. Less shortness for breath. Minimal wheezing. I am going to discharge her home today. Advised him to follow up with primary care physician 1-2 weeks. Follow up with packing line worker per schedule as needed. Activity as tolerated. Diet home diet. Physical exam: HEENT: Normocephalic atraumatic pupils equal react to light and accommodation. Extraocular muscles intact, conjunctiva pink, oropharynx moist, no thrush, no exudate. Lymphatic: No lymphadenopathy Cardiovascular exam: S1, S2 was heard. No murmurs, rubs, gallops Lung: Clear on auscultation bilaterally, no wheeze, rale, rhonchi. GI: Abdominal soft, nondistended, nontenderness, positive bowel sounds. Extremity: No crepitus, cyanosis, edema. Pedal pulses present bilateral. Full range of motion. Skin: Normal turgor, no rash. Psych: Alert, oriented x3. Neurology: No focal deficits, cranial nerve II to XII grossly intact. This medical document was created using an electronic medical record system with [employer] computerized dictation system. Although this document has been carefully reviewed, there may still be some phonetic and typographical errors. These areas are purely typographical due to imperfections of the software programs, and do not reflect any compromise in the patient's medical care. Condition at Discharge: Stable Final Diagnosis/Problems List pneumonia possible secondary to Gram-positive pneumonia Asthma exacerbation Urinary tract infection Cough Discharge Disposition: Home Discharge Statement: "Patient was advised to return to the ER or call 911 if any headaches, dizziness, shortness of breath, chest pain, abdominal pain, bleeding, fevers, or worsening of medical condition. Patient was counseled about treatment plan, medications, possible side effects, patientverbalized understanding. All questions were answered to the best of my ability. This discharge took greater then 30 minutes in planning, reviewing documentation, counseling the patient, and discussing with other team members." ASSESSMENT ASSESSMENT Assessment Date of Service: Sep 19, 2024 Billing Provider: RENETTA HENNING MD Common Visit Codes: 14535-KKU/OBS DISCH DAY >30min RENETTA HENNING MD Sep 19, 2024 14:00
[2024-09-19] MEDS ORDERED: METH4PAK PO (14:01)
[2024-09-19] MEDS ORDERED: AZIT-74 PO (14:01)
[2024-09-19] MEDS ORDERED: ALBU0.084 NEB (14:01)
[2024-09-19] MEDS ORDERED: ALBUAER3 IN (15:29)
== END 2024-09-19 16:40 | disposition home or self-care (01) | DRG 139 ==
LOC: ER 11:33 → OVERFLOW 18:46 → WEST WING 09-17 15:05
PROVIDERS: ADMIT Internal Medicine; ATTEND Internal Medicine
DX: J15.9 Unspecified bacterial pneumonia (principal); J45.901 Unspecified asthma with (acute) exacerbation; N39.0 Urinary tract infection, site not specified; J98.4 Other disorders of lung; Z79.51 Long term (current) use of inhaled steroids; Z79.899 Other long term (current) drug therapy; Z86.16 Personal history of COVID-19
CPT/HCPCS: 36415; 71045; 80048; 81001; 84484; 85025; 93005; 94640; 96365; 96368; 96375; G0378; J2405